=== PATIENT | female | born 1995 | race Caucasian/White ===

== ENCOUNTER 2019-10-03 10:10 | Emergency (ER) | payer SELFPAY ==
[~2019-10-03] VITALS: Ht 154.9 cm; Wt 92.6 kg
[2019-10-03 10:17] VITALS: Ht 154.9 cm; Wt 92.6 kg
[2019-10-03 11:26] LABS: CALCIUM 8.6 mg/dL (8.5-10.1); CARBON DIOXIDE 27.3 mmol/L (21-32); CHLORIDE SERUM 105 mmol/L (98-107); CREATININE SERUM 0.6 mg/dL (0.6-1.0); GFR1 > 60 mL/min; GLUCOSE SERUM 94 mg/dL (74-106); POTASSIUM SERUM 3.8 mmol/L (3.5-5.1); SODIUM SERUM 140 mmol/L (136-145)
[2019-10-03 11:31] LABS: ALKALINE PHOSPHATASE 57 U/L (46-116); ALT/SGPT 131 U/L (14-59); AST/SGOT 56 U/L (15-37); TOTAL PROTEIN, SERUM 7.7 g/dL (6.4-8.2)
[2019-10-03 12:08] VITALS: BP 129/84
== END 2019-10-03 12:08 | disposition home or self-care (01) ==
LOC: ED 10:10
PROVIDERS: Emergency Medicine
DX: M79.2 Neuralgia and neuritis, unspecified (principal); J45.909 Unspecified asthma, uncomplicated; G43.909 Migraine, unspecified, not intractable, without status migrainosus; Z88.1 Allergy status to other antibiotic agents
CPT/HCPCS: 36415